=== PATIENT | male | born 1995 | race African-American/Black ===

== ENCOUNTER 2020-02-19 16:13 | Emergency (ER) | payer OTHER ==
[2020-02-19 16:35] VITALS: BP 177/89; PULSE 86; TEMP 98.6; BMI 34.2
--- OUTSIDE RECORDS SUMMARY | 2020-02-19 16:39 | XMS ---
:1995 Author Organization [facility] Care Team Providers Name Role Phone CARRIE OTTO MD Unavailable PASSARD CIVIL PREPAREDNESS OFFICER, ZAID Unavailable PASSHAILEE CIVIL PREPAREDNESS OFFICER, ZAID Unavailable Douglas Lezama Unavailable [email or web address] Elvis Lezama Unavailable [email or web address] Elvis Lezama Unavailable [email or web address] Elvis Lezama Unavailable [email or web address] Elvis Lezama Unavailable [email or web address] Elvis Lezama Unavailable [email or web address] LORRAINE AWAD Unavailable Elie Unavailable Unavailable Elie Unavailable Unavailable Elie Unavailable Unavailable Elie Unavailable Unavailable Elie Unavailable Unavailable Elie Unavailable Unavailable Re-disclosure Warning The records that you are about to access may contain information from federally- assisted alcohol or drug abuse programs. If such information is present, then the following federally mandated warning applies: This information has been disclosed to you from records protected by federal confidentiality rules (42 CFR part 2). The federal rules prohibit you from making any further disclosure of this information unless further disclosure is expressly permitted by the written consent of the person to whom it pertains or as otherwise permitted by 42 CFR part 2. A general authorization for the release of medical or other information is NOT sufficient for this purpose. The Federal rules restrict any use of the information to criminally investigate or prosecute any alcohol or drug abuse patient.The records that you are about to access may contain highly sensitive health information, the redisclosure of which is protected by Article 27-F of the [facility] Public Health law. If you continue you may haveaccess to information: Regarding HIV / AIDS; Provided by facilities licensed or operated by the [facility] Office of Mental Health; or Provided by the [facility] Office for People With Developmental Disabilities. If such information is present, then the following [facility] mandated warning applies: This information has been disclosed to you from confidential records which are protected by state law. State law prohibits you from making any further disclosure of this information without the specific written consent of the person to whom it pertains, or as otherwise permitted by law. Any unauthorized further disclosure in violation of state law may result in a fine or fci sentence or both. A general authorization for the release of medical or other information is NOT sufficient authorization for further disclosure. Allergies and Adverse Reactions Type Description Substance Reaction Status Data Source(s ) Allergy to No Known Allergies No known GREENW AY ([facility] substance allergies [facility] ) Allergy to No Known Allergies No known GREENW AY ([facility] substance allergies [facility] ) Allergy to No Known Allergies No known GREENW AY ([facility] substance allergies [facility] ) Encounters Encounter Providers Location Date Indications Data Source(s ) Outpatient<td Attender: Kimmell 06/17/19 Routine WALLACE ([facility] ID="[place]ounterType [place] [id number] Examination Willie on DescriptionID0">Noemi [facility] 12:00:00 Nei raquel PRICE</td><td>[facility]) NU FROST 06/17/19 [facility]</td><td>[address] 11:59:00 [facility]</td><td></td><td> <content ID="encounterDiag nosisID0-0">Routi ne Examination</cont ent></td> Routine Examination Outpatient<td Attender: Kimmell 05/19/2019 WALLACE ID="encounterTypeDescriptionID1">XRAY</td><td>CHERELLE VILLARREAL [facility] 02:15:00 PM (Kimmell MORSE MD</td><td>[facility] LORRAINE AWAD Health C enter [facility]</td><td>05/19/2019</td><td></td> 020 Health 02:04:37 PM Center) EST Outpatient<td Attender: Kimmell 05/19/2019 WALLACE ID="encounterTypeDescriptionID2">WALKINS</td><td>MELINDA MAR [facility] 01:00:00 PM [facility]td><td>[facility]</td><td>05/19/2019</td><td></td> CIVIL PREPAREDNESS OFFICER 05/19/2019 Health 01:41:06 PM Center) EST Outpatient<td Attender: Kimmell 04/30/2019 R WALLACE ID="encounterTypeDescriptionID3">WALKINS</td><td>[facility] 09:45:00 AM o ([facility] PARAMJIT AWAD</td><td>[facility]</td><td>04/30/2019</td><td><content 04/30/2019 t Health ID="encounterDiagnosisID3-0">Routine 10:46:59 A M i Center) Examination</content></td> EST n e E x a m i n a t i o n R o u t i n e E x a m i n a t i o n R o u t i n e E x a m i n a t i o n R o u t i n e E x a m i n a t i o n Routine Examination Routine Examination Routine Examination Routine Examination Outpatient<td Attender: 04/29/2019 WALLACE ID="encounterTypeDescriptionID4">*OUTREACH*</td><td>[facility]ID [facility] 04:56[facility] PM (Kimmell MARGOT CIVIL PREPAREDNESS OFFICER</td><td> [facility] EST - [place] </td><td>04/29/2019</td><td></td> CIVIL PREPAREDNESS OFFICER 04/29/2019 Health 11:59:00 PM Center) EST Outpatient<td ID="encounterTypeDescriptionID5">OFFICE Attender: Keshia 04/19/2019 A MAGDIEL VISIT</td><td>CARRIE OTTO MD</td><td>[facility]immelljusten [facility]omeli 10:30:00 AM s ([facility] FAM AWAD u EST - [facility]</td><td>04/19/2019</td><td><content n 04/04 i Health ID="encounterDiagnosisID5-0">Astigmatism t 10:55: 37 AM [facility]) Bilateral</content></td> V EST m e a r t n i o s n m N B e i i l g a h t b e o r r a h l o A o s d t H i e g a m l a t t h i C s e m n B t i e l r a t e r a l A s t i g m a t i s m B i l a t e r a l A s t i g m a t i s m B i l a t e r a l A s t i g m a t i s m B i l a t e r a l A s t i g m a t i s m B i l a t e r a l Astigmatism Bilateral Astigmatism Bilateral Astigmatism Bilateral Astigmatism Bilateral Astigmatism Bilateral Astigmatism Bilateral Outpatient<td Kimmell 04/19/2019 WALLACE ID="encounterTypeDescriptionID1">WALKINS</td><td> [facility] [place] 10:15:00 AM (Kimmell </td><td>[facility]</td><td>04/19/2019</td><td></td> 04/19/2019 Health 11:59:00 PM Center) EST Outpatient<td A Kimmell 04/14/2019 R WALLACE ID="encounterTypeDescriptionID6">COMPLETE PHYSICAL t [place] 11:30:00 AM o (Kimmell EXAM</td><td>ZAID PASSARD CIVIL PREPAREDNESS OFFICER</td><td>[facility] EST - u [facility] e 04/14/2019 [facility]</td><td>04/14/2019</td><td><content n 01:0 4:09 PM i Center) ID="encounterDiagnosisID6-0">Routine d EST n Examination</content></td> e e r E : x C a L m A i U n D a I t N i E o P n A R S o S u A t R i D n F e N E P x a m i n a t i o n R o u t i n e E x a m i n a t i o n R o u t i n e E x a m i n a t i o n R o u t i n e E x a m i n a t i o n R o u t i n e E x a m i n a t i o n R o u t i n e E x a m i n a t i o n Routine Examination Routine Examination Routine Examination Routine Examination Routine Examination Routine Examination Routine Examination Outpatient<td Attender: Matthew Sanchez 04/09/2019 WALLACE ID="encounterTypeDescriptionID7">COMPLETE [place] [facility] 12: 15:00 PM (Kimmell PHYSICAL EXAM</td><td>[facility] EST - Neighborhood CIVIL PREPAREDNESS OFFICER</td><td>Kimmell [facility] 9 Health Health 12:41:11 PM [place]) Center</td><td>04/09/2019</td><td></td> EST Medications Medication Brand Start Product Dose Route Administrative Pharmacy [facility] Indications Reaction Description Data Name Date Form Instructions Instructions Source(s) Robitussin [facility]u 05/19[facility] ssin [facility] ed ([facility] Cough 12 12:00: Daniel 30MG/5ML Hour 00 AM Neighborho Oral Cough EST od Health Suspension 30MG/5 [place]) Extended ML Release Oral Suspen rola Extend ed Releas e Insurance Providers Payer name Policy type / Policy ID Covered Covered democrat's Policy Plan Coverage type democrat ID relationship to [place] Information vaca MENDOZA [id number] 200 HEALTH NON CAP [place] Care Individual 0 Self 0 [place] Individual 0 Self 0 [place] Policy [place] Individual 0 Self 0 [place] Policy [place] Care Individual 0 Self 0 [place] Policy M[place] Individual 0 Self 0 [place] Policy [place] Care Individual 0 Self 0 [place] Policy [place] Care [id number] S [id number] [place] Medicaid Dental [id number] S [id number] Dentaquest MKD Darwin Vision [id number] S [id number] D Medicaid [id number] S [id number] Regular Clinic Visit [place] Care Individual 0 Self 0 [facility] [place] Care Individual 0 Self 0 [facility] [place] Care [id number] S [id number] [place] Surgeries/Procedures Procedure Description Date Indications Data Source(s) Bmi documented outside BMI OUTSIDE NORMAL 05/19/2019 WALLACE ([facility] normal parameters, no RANGE - NO F/U PLAN 12:00:00 [place] follow-up plan [facility] documented, no reason Health Center) given Xray of the Chest Xray of the Chest 05/19/2019 [facility] ([facility] Single View Single View 12:00:00 [facility]) MUMPS ANTIBODY MUMPS ANTIBODY 04/30/2019 WALLACE (M ount 12:00:00 [facility]) RUBELLA TITER RUBELLA TITER 04/30/2019 WALLACE (Liudmila nt 12:00:00 [facility]) RUBEOLA RUBEOLA 04/30/2019 WALLACE ([facility] 12:00:00 [facility]) VARICELLA - ZOSTER VARICELLA - ZOSTER 04/30/2019 GRE ENWAY ([facility] 12:00:00 [facility]) DETERMINATION DETERMINATION OF 04/19/2019 WALLACE ( [facility] REFRACTIVE STATE REFRACTIVE STATE 12:00:00 [facility]) Ophthalmological Ophthalmological 04/19/2019 JOSE DAVID Y ([facility] Services Exam & Eval Services Exam & Eval 12:00:00 [place] Intermediate Estab Pt. Intermediate Estab Pt. [facility]) History of No carotid History of No carotid 04/14/2019 WALLACE ([facility] bruits bruits 12:00:00 [facility]) HEMOGLOBIN A1C HEMOGLOBIN A1C 04/14/2019 WALLACE ([facility] 12:00:00 [facility]) HIV 1/2 ANTIGEN & HIV 1/2 ANTIGEN & 04/14/2019 [facility] ([facility] ANTIBODIES, 4TH ANTIBODIES, 4TH 12:00:00 Daniel GENERATION W/REFLEXES GENERATION W/REFLEXES [facility]) HERPES SIMPLEX VIRUS HERPES SIMPLEX VIRUS 04/14/2019 WALLACE ([facility] TYPE 1 TYPE 1 12:00:00 [facility]) HERPES SIMPLEX VIRUS HERPES SIMPLEX VIRUS 04/14/2019 WALLACE ([facility] TYPE 2 TYPE 2 12:00:00 [facility]) CHLAMYDIA TRACHOMATIS, CHLAMYDIA TRACHOMATIS, 04/14/2019 WALLACE ([facility] AMPLIFIED PROBE AMPLIFIED PROBE 12:00:00 [facility]) LIPID PANEL LIPID PANEL 04/14/2019 WALLACE ([facility] 12:00:00 [facility]) TSH-THYROID STIMULATING TSH-THYROID 04/14/2019 GREE NWAY ([facility] STIMULATING 12:00:00 [facility]) URINE C AND S URINE C AND S 04/14/2019 WALLACE ([facility] nt 12:00:00 [facility]) [id number] 04/14/2019 [facility] ([facility] 12:00:00 [facility]) METABOLIC PANEL METABOLIC PANEL 04/14/2019 WALLACE ([facility] COMPREHE COMPREHE 12:00:00 [facility]) VDRL (RPR) VDRL (RPR) 04/14/2019 WALLACE ([facility] 12:00:00 [facility]) URINALYSIS MICROSCOPIC URINALYSIS MICROSCOPIC 04/14/2019 WALLACE ([facility] 12:00:00 [facility]) Results ID Date Data Source [id number] 04/30/2019 10:57:[address] [facility] (Liudmila nt [facility]) Name Value Range Interpretation Description Data Source(s ) Supporting Code Document(s ) Measles virus >300.0 Measles WALLACE IgG Ab AU/mL Antibodies, (Kimmell [Units/volume] IgG Neighborhood in Serum by [facility]) Immunoassay Note: Negative <13.5 Equ ivocal 13.5 - 16.4 Positive >16. 4 Presence of antibodies to Rubeola is presumptive evidence of immunity except when acute infection is suspected. ID Date Data Source [id number] 04/30/2019 10:57:[address] [facility] (Liudmila nt [facility]) Name Value Range Interpretation Description Data Source(s ) Supporting Code Document(s ) Mumps virus 45.3 Mumps Abs, WALLACE IgG Ab AU/mL IgG (Kimmell [Units/volume] Neighborhood in Serum by [facility]) Immunoassay Note: Negative <9.0 Equiv ocal 9.0 - 10.9 Positive >10.9 A positive result generally indicates past exposure to Mumps virus or previous vaccination. ID Date Data Source [id number] 04/30/2019 10:57:[address] [facility] ([facility]) Name Value Range Interpretation Description Data Source(s ) Supporting Code Document(s ) Varicella 210 Varicella MAGDIEL zoster virus index Zoster IgG (Kimmell IgG Ab [facility] [Units/volume] [facility]) in Serum by Immunoassay Note: Negative <135 Equivo sulaiman 135 - 165 Positive >165 A positive result generally indicates exposure to the pathogen or administration of specific immunoglobulins, but it is not indication of active infection or stage of disease. ID Date Data Source [id number] 04/30/2019 10:57:[address] [facility] ([facility]) Name Value Range Interpretation Description Data Source(s ) Supporting Code Document(s ) Rubella virus 3.96 Rubella WALLACE IgG Ab index Antibodies, (Kimmell [Units/volume] IgG Neighborhood in Serum or [facility] Center) Plasma by Immunoassay Note: Non-immune <0.90 Equi vocal 0.90 - 0.99 Immune >0.9 9 ID Date Data Source [id number] 04/22/2019 09:00:[address] [facility] ([facility]) Name Value Range Interpretation Description Data Source(s ) Supporting Code Document(s ) Bacteria Final Urine MAGDIEL identified in report Culture, (Kimmell Urine by Routine [facility] Culture [facility]) Bacteria No growth Result 1 MADGIEL identified in (Kimmell Urine by [facility] Culture [facility]) ID Date Data Source [id number] 04/22/2019 09:00:[address] [facility] ([facility]) Name Value Range Interpretation Description Data Source(s ) Supporting Code Document(s ) Herpes simplex 15.50 Above high normal HSV 1 IgG, GREEN AY virus 1 IgG Ab index Type Spec (Kimmell [Units/volume] Neighborhood in Serum by [facility]) Immunoassay Note: Negative <0.91 Equ ivocal 0.91 - 1.09 Positive >1.0 9 Note: Negative indicates no antibodies detected to HS V-1. Equivocal may suggest early infection. If clinically appropriate , retest at later date. Positive indicates antibodies detected to HSV-1 . ID Date Data Source [id number] 04/22/2019 09:00:00 AM EST WALLACE ([facility]) Name Value Range Interpretation Description Data Source(s ) Supporting Code Document(s ) Herpes simplex <0.91 HSV 2 IgG, WALLACE virus 2 IgG Ab index Type Spec (Kimmell [Units/volume] Neighborhood in Serum by [facility]) Immunoassay Note: Negative <0.91 Equ ivocal 0.91 - 1.09 Positive >1.0 9 Note: Negative indicates no antibodies detected to HS V-2. Equivocal may suggest early infection. If clinically appropriate , retest at later date. Positive indicates antibodies detected to HSV-2 . ID Date Data Source [id number] 04/22/2019 09:00:00 AM EST WALLACE ([facility]) Name Value Range Interpretation Description Data Source(s ) Supporting Code Document(s ) HIV 1+2 Non HIV Screen WALLACE Ab+HIV1 p24 Reactive 4th (Kimmell Ag [Presence] Generation [facility] in Serum or [facility]) Plasma by Immunoassay ID Date Data Source [id number] 04/22/2019 09:00:00 AM EST WALLACE ([facility]) Name Value Range Interpretation Description Data Source(s ) Supporting Code Document(s ) Thyrotropin 1.210 TSH WALLACE ([facility] [Units/volume] uIU/mL Daniel in Serum or [facility] Plasma by [facility]) Detection limit <= 0.05 mIU/L ID Date Data Source [id number] 04/22/2019 09:00:00 AM EST WALLACE ([facility]) Name Value Range Interpretation Description Data Source(s ) Supporting Code Document(s ) Hemoglobin 5.5 % Hemoglobin A1c WALLACE (Moun t A1c/Hemoglobi Daniel n.total in [facility] Blood [facility]) Note: Prediabetes: 5.7 - 6.4 Diabetes: >6.4 Glycemic control for adults with diabetes: <7.0 ID Date Data Source [id number] 04/22/2019 09:00:00 AM EST WALLACE ([facility]) Name Value Range Interpretation Description Data Source(s ) Supporting Code Document(s ) Trichomonas Negative Trich vag by MAGDIEL vaginalis rRNA LAUREN (Kimmell [Presence] in [facility]) specimen by Probe and target amplification method ID Date Data Source [id number] 04/22/2019 09:00:00 AM EST MAGDIEL ([facility]) Name Value Range Interpretation Description Data Source(s ) Supporting Code Document(s ) Chlamydia Negative Chlamydia MAGDIEL trachomatis trachomatis, (Kimmell rRNA [Presence] LAUREN [facility] in [facility]) specimen by Probe and target amplification method Neisseria Negative Neisseria MAGDIEL gonorrhoeae gonorrhoeae, (Kimmell rRNA [Presence] LAUREN [facility] in [facility]) specimen by Probe and target amplification method ID Date Data Source [id number] 04/22/2019 09:00:00 AM EST MAGDIEL ([facility]) Name Value Range Interpretation Description Data Source(s ) Supporting Code Document(s ) Cholesterol 117 Cholesterol, MAGDIEL [Mass/volume] mg/dL Total (Kimmell in Serum or [facility]) Triglyceride 35 Triglycerides MAGDIEL [Mass/volume] mg/dL (Kimmell in Serum or [facility]) Laboratory N/A Comment: WALLACE comment [Text] (Kimmell in Report [facility]) Cholesterol in 45 HDL Cholesterol MAGDIEL HDL mg/dL (Kimmell [Mass/volume] Neighborhood in Serum or Health Center) Plasma Cholesterol in 1.4 LDL/HDL Ratio MAGDIEL LDL/Cholestero ratio (Kimmell l in HDL [Mass Neighborhood Ratio] in Health [place]) Serum or Plasma Note: LDL/HDL Ratio Men Women 1/2 Avg.Risk 1.0 1.5 Avg.Risk 3.6 3.2 2X Avg.Risk 6.2 5.0 3X Avg.Risk 8.0 6.1 Cholesterol in VLDL 7 mg/dL VLDL Cholesterol Sulaiman MAGDIEL (Kimmell [Mass/volume] in Serum or [facility] Plasma by calculation Center) Cholesterol in LDL 65 mg/dL LDL Cholesterol Calc MAGDIEL (Kimmell [Mass/volume] in Serum or [facility] Plasma by calculation Center) ID Date Data Source [id number] 04/22/2019 09:00:00 AM EST MAGDIEL ([facility]) Name Value Range Interpretation Description Data Sup porting Code Source(s) Document(s ) Calcium 9.1 Calcium MAGDIEL [Mass/volume] in mg/dL (Kimmell Serum or [facility]) Glucose 90 Glucose MAGDIEL [Mass/volume] in mg/dL ([facility] or [facility]) Urea nitrogen 14 BUN MAGDIEL [Mass/volume] in mg/dL ([facility] or [facility]) Protein 6.8 Protein, MAGDIEL [Mass/volume] in g/dL Total ([facility] or [facility]) Bilirubin.total 0.4 Bilirubin, MAGDIEL [Mass/volume] in mg/dL Total ([facility] or [facility]) Alkaline 42 IU/L Alkaline MAGDIEL phosphatase Phosphatase (Kimmell [Enzymatic Neighborhood activity/volume] [facility] in Serum or [facility]) Albumin 4.1 Albumin MAGDIEL [Mass/volume] in g/dL ([facility] or [facility]) Aspartate 56 IU/L Above high AST (SGOT) WALLACE aminotransferase normal (Kimmell [Enzymatic Neighborhood activity/volume] Health in Serum or [facility]) Sodium 138 Sodium MAGDIEL [Moles/volume] in mmol/L ([facility] or [facility]) Potassium 4.0 Potassium MAGDIEL [Moles/volume] in mmol/L ([facility] Serum or [facility]) Creatinine 0.81 Creatinine MAGDIEL [Mass/volume] in mg/dL ([facility] or [facility]) Alanine 44 IU/L ALT (SGPT) MAGDIEL aminotransferase (Kimmell [Enzymatic Neighborhood activity/volume] [facility] in Serum or Plasma [place]) Chloride 102 Chloride MAGDIEL [Moles/volume] in mmol/L ([facility] or [facility]) Urea 17 BUN/Creatinin MAGDIEL nitrogen/Creatinin e Ratio ([facility] on e [Mass Ratio] in [facility] or [facility]) Globulin 2.7 Globulin, MAGDIEL [Mass/volume] in g/dL Total (Kimmell Serum by [facility]) Carbon dioxide, 22 Carbon MAGDIEL total mmol/L Dioxide, (Kimmell [Moles/volume] in Total [facility]) eGFR If NonAfricn 124 eGFR If MAGDIEL Am mL/min/ NonAfricn Am (Kimmell 1.73 [facility]) Albumin/Globulin 1.5 A/G Ratio MAGDIEL [Mass Ratio] in ([facility] or Plasma [facility]) eGFR If Africn Am 143 eGFR If MAGDIEL mL/min/ Africn Am (Kimmell 1.73 [facility]) ID Date Data Source [id number] 04/19/2019 10:55:22 AM EST GREENWA Y (Kimmell [id number] [facility]) Name Value Range Interpretation Description Data Source(s ) Supporting Code Document(s ) No Results No Results No Results MAGDIEL ([facility] Recorded For [facility]) ID Date Data Source [id number] 04/14/2019 04:03:59 PM EST GREENWA Y (Kimmell [id number] [facility]) Name Value Range Interpretation Description Data Source(s ) Supporting Code Document(s ) No Results No Results No Results MAGDIEL ([facility]ed For [facility]) ID Date Data Source [id number] 04/09/2019 12:51:12 PM EST GREENWA Y (Kimmell [id number] [facility]) Name Value Range Interpretation Description Data Source(s ) Supporting Code Document(s ) No Results No Results No Results MAGDIEL ([facility]ed [facility]) Procedure Social History Code Duration Value Status Description Data Source(s ) Smoking 04/19/2019 Never smoked completed Never smoked MAGDIEL ( [facility] 10:55:19 AM EST tobacco tobacco (finding) Ve rnon [facility] ([facility]) [facility]) Vital Signs ID Date Data Source UNK Name Value Range Interpretation Code Description Data Source(s) PhenX - pain, 0 0 MAGDIEL ([facility] abdominal - type [facility] Health and intensity [place]) protocol Patient here for form completion Body surface area Derived from 2.35 m2 2.35 m2 MAGDIEL ([facility]) Patient here for form completion Body mass index (BMI) 35.8 kg/m2 35.8 kg/m2 GRE ENWAY (Kimmell [Ratio] [facility]) Patient here for form completion Body weight 257 [lb_av] 257 [lb_av] MAGDIEL ([facility]) Patient here for form completion Body height 71 [in_us] 71 [in_us] MAGDIEL ([facility]) Patient here for form completion Body temperature 98.5 [degF] 98.5 [degF] GREENW AY ([facility]) Patient here for form completion Respiratory rate 19 /min 19 /min MAGDIEL ([facility]) Patient here for form completion Heart rate 66 /min 66 /min MAGDIEL ([facility]) Patient here for form completion Diastolic blood pressure 81 mm[Hg] 81 mm[Hg] MAGDIEL ([facility]) Patient here for form completion Systolic blood pressure 129 mm[Hg] 129 mm[Hg] [facility] Patient here for form completion PhenX - pain, abdominal - type and 0 0 MAGDIEL ([facility]) Patient here for coughing x 2 wks Body surface area Derived from 2.34 m2 2.34 m2 W[place]ACE ([facility]) Patient here for coughing x 2 wks Body mass index (BMI) 35.6 kg/m2 35.6 kg/m2 [place] ([place] [[facility]] [facility]) Patient here for coughing x 2 wks Body weight 255 [lb_av] 255 [lb_av] [place] ([facility]) Patient here for coughing x 2 wks Body height 71 [in_us] 71 [in_us] MAGDIEL ([facility]) Patient here for coughing x 2 wks Body temperature 98 [degF] 98 [degF] MAGDIEL ([facility]) Patient here for coughing x 2 wks Respiratory rate 20 /min 20 /min W[place]ACE ([facility]) Patient here for coughing x 2 wks Heart rate 90 /min 90 /min [place] ([facility]) Patient here for coughing x 2 wks Diastolic blood pressure 69 mm[Hg] 69 mm[Hg] [place] ([facility]) Patient here for coughing x 2 wks Systolic blood pressure 123 mm[Hg] 123 mm[Hg] [facility] Patient here for coughing x 2 wks PhenX - pain, abdominal - type and 0 0 MAGDIEL ([facility]) Patient states he here for results Body surface area Derived from 2.32 m2 2.32 m2 MAGDIEL ([facility]) Patient states he here for results Body mass index (BMI) 34.9 kg/m2 34.9 kg/m2 GRE EN[place] ([place] [[facility]] [facility]) Patient states he here for results Body weight 250.125 [lb_av] 250.125 [lb_av] [place] ([facility]) Patient states he here for results Body height 71 [in_us] 71 [in_us] MAGDIEL ([facility]) Patient states he here for results Body temperature 97.9 [degF] 97.9 [degF] [facility] ([facility]) Patient states he here for results Heart rate 85 /min 85 /min MAGDIEL ([facility]) Patient states he here for results Diastolic blood pressure 69 mm[Hg] 69 mm[Hg] MAGDIEL ([facility]) Patient states he here for results Systolic blood pressure 127 mm[Hg] 127 mm[Hg] G [place] ([facility]) Patient states he here for results PhenX - pain, abdominal - type and 0 0 MAGDIEL ([facility]) 23 yearold m here first time visit. Body surface area Derived from 2.32 m2 2.32 m2 MAGDIEL ([facility]) 23 yearold m here first time visit. Body mass index (BMI) 34.9 kg/m2 34.9 kg/m2 [place] ([place] [[facility]] [facility]) 23 yearold m here first time visit. Body weight 250 [lb_av] 250 [lb_av] MAGDIEL ([facility]) 23 yearold m here first time visit. Body height 71 [in_us] 71 [in_us] MAGDIEL ([facility]) 23 yearold m here first time visit. Body temperature 98 [degF] 98 [degF] MAGDIEL ([facility]) 23 yearold m here first time visit. Heart rate 86 /min 86 /min MAGDIEL ([facility]) 23 yearold m here first time visit. Diastolic blood pressure 79 mm[Hg] 79 mm[Hg] [place] ([facility]) 23 yearold m here first time visit. Systolic blood pressure 135 mm[Hg] 135 mm[Hg] G [facility] ([facility]) 23 yearold m here first time visit. PhenX - pain, abdominal - type and 0 0 [place] ([facility]) Patient here for complete physical exami nation Body surface area Derived from 2.31 m2 2.31 m2 [place] ([facility]) Patient here for complete physical exami [facility] Body mass index (BMI) 34.5 kg/m2 34.5 kg/m2 [address] ([place] [[facility]] [facility]) Patient here for complete physical exami nation Body weight 247.4 [lb_av] 247.4 [lb_av] [facility] ([facility]) Patient here for complete physical exami nation Body height 71 [in_us] 71 [in_us] [place] ([facility]) Patient here for complete physical exami nation Body temperature 98.2 [degF] 98.2 [degF] [facility] ([facility]) Patient here for complete physical exami nation Respiratory rate 20 /min 20 /min [place] ([facility]) Patient here for complete physical exami [facility] Heart rate 78 /min 78 /min [place] ([facility]) Patient here for complete physical exami nation Diastolic blood pressure 72 mm[Hg] 72 mm[Hg] [place] ([facility]) Patient here for complete physical exami nation Systolic blood pressure 107 mm[Hg] 107 mm[Hg] G [facility] ([facility]) Patient here for complete physical exami nation PhenX - pain, abdominal - type and 0 0 [place] ([facility]) Patient here for complete physical exami naion . Body weight 248 [lb_av] 248 [lb_av] [facility] ([facility]) Patient here for complete physical exami naion . Body temperature 98.7 [degF] 98.7 [degF] [facility] ([facility]) Patient here for complete physical exami naion . Respiratory rate 20 /min 20 /min MAGDIEL ([facility]) Patient here for complete physical exami naion . Heart rate 76 /min 76 /min MAGDIEL ([facility]) Patient here for complete physical exami naion . Diastolic blood pressure 71 mm[Hg] 71 mm[Hg] MAGDIEL ([facility]) Patient here for complete physical exami naion . Systolic blood pressure 121 mm[Hg] 121 mm[Hg] [facility] ([facility]) Patient here for complete physical exami naion . Patient Treatment Plan of Care Planned Activity Planned Date Details Description Data Source (s) Marilyn 12 Hour 05/19/2019 12:00:00 GR DEANNE (Matthew Sanchez Cough 30MG/5ML Oral AM EST [facility]) Release
--- NOTE | 2020-02-19 17:04 | PDOC ---
History of Present Illness - General Chief Complaint: Pain, Acute Stated Complaint: HICCUPS Time Seen by Provider: 02/19/20 16:28 History Source: Patient Exam Limitations: No Limitations - History of Present Illness Initial Comments: 02/19/20 18:13 24-year-old male presents the emergency room with complaints of intractable hiccups for 4 days now causing her back pain. Patient denies any recent illness, recent injury, medical history, illicit drug use, or use of medication or daily basis. Patient states hiccups have subsided since this morning to minimal and has tried drinking water holding his breath, and "being scared" Is this a multiple visit Asthma Patient?: No Timing/Duration: other Severity: mild Associated Symptoms: reports: denies symptoms Past History - Travel History Traveled outside of the country in the last 30 days: No Close contact w/someone who was outside of country & ill: No - Medical History Allergies/Adverse Reactions: Allergies Allergy/AdvReac Type Severity Reaction Status Date / Time No Known Allergies Allergy Verified 02/19/20 16:22 Home Medications: Ambulatory Orders Baclofen 5 mg PO TID #21 tablet 02/19/20 - Psycho-Social/Smoking History Patient Lives Alone: No Lives with/in: parents Smoking History: Current some day smoker Information on smoking cessation initiated: No - Substance Abuse Hx (Audit-C & DAST Scrn) How often the patient has a drink containing alcohol: Never Score: In Men: 4 or > Positive; In Women: 3 or > Positive: 0 Screen Result (Pos requires Nsg. Audit-10AR): Negative Review of Systems - Review of Systems Able to Perform ROS?: No Is the patient limited Indonesian proficient: No Constitutional: No: Symptoms Reported HEENTM: No: Symptoms Reported Respiratory: No: Symptoms reported Cardiac (ROS): Yes: Symptoms Reported, Other (soreness) ABD/GI: No: Symptoms Reported : No: Symptoms Reported Musculoskeletal: No: Symptoms Reported Integumentary: No: Symptoms Reported Neurological: Yes: Other (hiccups) Endocrine: No: Symptoms Reported Hematologic/Lymphatic: No: Symptoms Reported *Physical Exam - Vital Signs Last Vital Signs Temp Pulse Resp BP Pulse Ox 98.6 F 86 18 177/89 H 100 02/19/20 16:22 02/19/20 16:22 02/19/20 16:22 02/19/20 16:22 02/19/20 16:22 - Physical Exam General Appearance: Yes: Nourished, Appropriately Dressed. No: Apparent Distress HEENT: negative: Pale Conjunctivae Neck: positive: Supple Respiratory/Chest: positive: Lungs Clear, Normal Breath Sounds. negative: Chest Tender, Respiratory Distress, Accessory Muscle Use Cardiovascular: positive: Regular Rhythm, Regular Rate. negative: Edema, Murmur Gastrointestinal/Abdominal: positive: Soft. negative: Tenderness Integumentary: positive: Normal Color, Warm, Moist Neurologic: positive: Motor Strength 5/5 (ambulatory) Medical Decision Making - Medical Decision Making 02/19/20 18:19 CC: hiccups x 4 days, no risk factors Exam: elevated bp...repeated 149/88, no chest tenderness, no active hiccuos noted Plan: baclofen x 7 days Discharge - Discharge Information Problems reviewed: Yes Clinical Impression/Diagnosis: Intractable hiccups Condition: Good Disposition: HOME - Additional Discharge Information Prescriptions: Baclofen 5 mg PO TID #21 tablet - Follow up/Referral - Patient Discharge Instructions Patient Printed Discharge Instructions: DI for Hiccups Additional Instructions: Please take meds as prescribed Please avoid alcohol and try to eat low fat, low chol, nongreasy/fried food. Follow up in 2 months with your doctor to have BP checked and you have tried the above recommendations. - Post Discharge Activity
== END 2020-02-19 17:23 | disposition home or self-care (01) ==
LOC: JER 16:13
DX: R06.6 Hiccough (principal)
CPT/HCPCS: 99284-25